=== PATIENT | female | born 1955 | race African-American/Black ===

== ENCOUNTER 2016-06-13 08:25 | Emergency (ER) | payer OTHER ==
[~2016-06-13] VITALS: Ht 177.8 cm; Wt 158.8 kg
[~2016-06-13 08:25] MED LIST: ATENOLOL25 MG PO; IBU800 MG PO; MACROBID100 MG PO; PYRIDIUM200 MG PO; SPIRONOLACTONE25 MG PO; VIBRAMYCIN100 MG PO
--- NOTE | 2016-06-13 08:38 | ED UPPER/LOWER EXTREMITY COMPL ---
History of Present Illness General Chief Complaint: Lower Extremity Problems Stated Complaint: RE-CHECK OF LEGS, SEEN 06/08 Source: patient, old records Exam Limitations: no limitations Vital Signs & Intake/Output Vital Signs & Intake/Output Vital Signs Date Time Temp Pulse Resp B/P Pulse O2 O2 Flow FiO2 Ox Delivery Rate 06/13 0845 168/98 06/13 0828 97.4 77 20 200/120 96 Room Air Allergies Coded Allergies: MDX - Ampicillin (AMPICILLIN) (Intermediate, HIVES 06/10/15) MDX - Penicillin (PENICILLIN) (Intermediate, HIVES 06/10/15) MDX - SULFA (sulfonamide) (SULFA (SULFONAMIDE)) (Intermediate, HIVES 06/10/15) Reconcile Medications Atenolol 25 MG TAB 1 TAB PO DAILY BP (Reported) Doxycycline Hyclate (Vibramycin) 100 MG CAPSULE 1 CAP PO BID INFN Ibuprofen (Ibu) 800 MG TAB 1 TAB PO PRN PAIN (Reported) NITROFURANTOIN MONOHYD/M-CRYST (Macrobid 100 MG Capsule) 100 MG CAP 1 CAP PO BID uti Phenazopyridine Hydrochlorid2 (Pyridium) 200 MG TAB 1 TAB PO TID dysuria Spironolactone 25 MG TAB 1 TAB PO DAILY BP (Reported) Triage Note: PT TO ED FOR RECHECK OF B/L LE CELLULITIS. PT WAS SEEN IN ED ON 06/08, SENT HOME WITH PO ABX, HAS BEEN TAKING DIRECTED. TOLD TO COME BACK FOR RE-EVAL OF LEGS TODAY. Triage Nurses Notes Reviewed? yes Onset: Gradual Duration: day(s): (6) Timing: remote history Severity: mild Severity Numbers: 1 Pain/Injury Location: Bilateral: Leg. Method of Injury: unknown Modifying Factors: Improves With: other (doxy,spironlolactone). Associated Symptoms: redness HPI: Patient is a 60-year-old female presenting to the emergency department with chief complaint of lower extremity edema and redness has been going on for 6 days. She was seen and evaluated here 5 days ago and started on antibiotics for suspected cellulitis. She was also told to increase her spironolactone dosing. She reports that the pain is now gone, the redness has decreased and she states feeling much better. Denies any nausea vomiting fevers or chills. No chest pain or shortness of breath. Denies numbness or tingling. (PRANAV MCCOLLUM) Past History Travel History Traveled to [place] past 21 day No Medical History Any Pertinent Medical History? see below for history Neurological: NONE EENT: NONE Cardiovascular: hypertension Respiratory: NONE Gastrointestinal: NONE Hepatic: NONE Renal: NONE Musculoskeletal: NONE Psychiatric: NONE Endocrine: NONE Blood Disorders: NONE Cancer(s): NONE Surgical History Surgical History: non-contributory Psychosocial History What is your primary language Qatari Tobacco Use: Current Daily Use Daily Tobacco Use Amount/Type: => 5 Cigarettes daily ETOH Use: denies use Illicit Drug Use: denies illicit drug use Family History Hx Contributory? No (PRANAV MCCOLLUM) Review of Systems Review of Systems Constitutional: Reports: no symptoms. Comments Review of systems: See HPI, All other systems negative. Constitutional, no chills fever or weight loss HEENT: No visual changes no sore throat no congestion Cardiovascular: No chest pain ,palpitation , orthopnea Skin, no jaundice Respiratory: No dyspnea cough sputum or hemoptysis GI: No nausea no vomiting : No dysuria No hematuria Muscle skeletal: no back pain, no neck pain, Neurologic: No numbness no confusion Psych: No stress anxiety or depression,. Heme/endocrine: No bruising no bleeding no polyuria or polydipsia Immunology: No splenectomy or history of AIDS (PRANAV MCCOLLUM) Physical Exam Physical Exam General Appearance: well developed/nourished, no apparent distress, alert, awake , comfortable Comments: Well-developed well-nourished person in no acute distress HEENT: Nose is atraumatic. Neck: Normal inspection Back: Nontender Cardiovascular: Regular rate and rhythms no murmurs rubs or gallops, normal JVP Respiratory: Chest nontender. No respiratory distress.breath sounds clear to auscultation bilaterally Extremity: One plus edema in the lower extremity is bilaterally, no calf tenderness to palpation, normal and equal pulses. Neuro: Alert oriented x3 Skin: No erythema noted on the lower extremities, No appreciable rash on exposed skin, skin is warm and dry. Psych: Mood and affect is normal, memory and judgment is normal. (PRANAV MCCOLLUM) Progress Differential Diagnosis: contusion, DVT, gout, cellulitis, depended edema Plan of Care: Patient is well-appearing, reports that she is doing much better after starting antibiotics and increasing spironolactone dosing. She does have 1+ edema in the lower seventh bilaterally without calf tenderness. Pulses are intact in lower extremity's. Clinical suspicion for DVT is extremely low, given outpatient ultrasound for left lower extremity as this is like both more swollen. She'll follow-up with her primary care physician and continue antibiotics. Patient was seen and evaluated by Dr. Busby and he agrees with plan. On arrival patient's blood pressure was extremely elevated, recheck with manual cuff reveals blood pressure of 160/90, patient per she just took her blood pressure medication. No headaches no visual changes no confusion. She will continue to monitor blood pressure home. (PRANAV MCCOLLUM) Departure Departure Time of Disposition: 836 Disposition: HOME OR SELF CARE Condition: Stable Clinical Impression Primary Impression: Leg edema Qualifiers: Laterality: bilateral Qualified Code: R60.0 - Localized edema Secondary Impressions: Hypertension Referrals: CAMILA BANKS,CIERRA Kenny (PCP/Family) Referred to [facility] as new patient No Additional Instructions: Follow-up with your primary care physician call to make an appointment for next week. Continue doxycycline. Return to regular dosing for years peroral lactone starting tomorrow. Elevate your legs as much as possible. Return for worsening symptoms or concerns. Departure Forms: Customer Survey General Discharge Information (PRANAV MCCOLLUM) PA/SENIOR DESIGNER Co-Sign Statement Statement: ED Attending supervision documentation- [x] I saw and evaluated the patient. I have also reviewed all the pertinent lab results and diagnostic results. I agree with the findings and the plan of care as documented in the PA's/SENIOR DESIGNER's documentation. [x] I have reviewed the ED Record and agree with the PA's/SENIOR DESIGNER's documentation. [] Additions or exceptions (if any) to the PAs/SENIOR DESIGNER's note and plan are summarized below: [] (ROCKY BUSBY DO)
[2016-06-13 08:45] VITALS: BP 168/98
== END 2016-06-13 08:49 ==
LOC: ERH 08:25
DX: R60.0 Localized edema (principal); I10 Essential (primary) hypertension

== ENCOUNTER 2018-01-06 18:07 | Emergency (ER) | payer OTHER ==
[~2018-01-06] VITALS: Ht 177.8 cm; Wt 158.8 kg
[~2018-01-06 18:07] MED LIST changes: +ALDACTONE25 MG PO; -SPIRONOLACTONE25 MG PO
[2018-01-06 18:16] VITALS: BP 164/84
--- NOTE | 2018-01-06 18:37 | ED SKIN/ALLERGY COMPLAINT ---
History of Present Illness General Chief Complaint: Animal/Insect Bite Stated Complaint: ?SPIDER BITE,"GOT BIT ON MONDAY" PER PT Source: patient Exam Limitations: no limitations Vital Signs & Intake/Output Vital Signs & Intake/Output Vital Signs Date Time Temp Pulse Resp B/P B/P Pulse O2 O2 Flow FiO2 Mean Ox Delivery Rate 01/06 1816 97.5 85 18 164/84 98 Room Air ED Intake and Output 01/07 0000 01/06 1200 Intake Total Output Total Balance Patient 350 lb Weight Allergies Coded Allergies: Penicillins (Intermediate, HIVES 01/06/18) Sulfa (Sulfonamide Antibiotics) (Intermediate, HIVES 01/06/18) ampicillin (Intermediate, HIVES 01/06/18) Reconcile Medications Atenolol 25 MG TAB 1 TAB PO DAILY BP (Reported) Cephalexin (Keflex) 500 MG CAPSULE 1 CAP PO TID CELLULITIS Doxycycline Hyclate (Vibramycin) 100 MG CAPSULE 1 CAP PO BID INFN Ibuprofen (Ibu) 800 MG TAB 1 TAB PO PRN PAIN (Reported) NITROFURANTOIN MONOHYD/M-CRYST (Macrobid 100 MG Capsule) 100 MG CAP 1 CAP PO BID uti Phenazopyridine Hydrochlorid2 (Pyridium) 200 MG TAB 1 TAB PO TID dysuria Spironolactone 25 MG TAB 1 TAB PO DAILY BP (Reported) Triage Note: 62F REPORTS SHE SUSTAINED A PAINFUL BITE OF SOME SORT ON MONDAY WHILE SITTING ON A BENCH AND STARTED GETTING RED IMMEDIATELY. PUT ALCOHOL ON IT, SLIGHTLY IMPROVED. AFEBRILE, DENIES SUBJECTIVE FEVERS OR CHILLS Triage Nurses Notes Reviewed? yes Onset: Gradual Duration: getting worse Timing: recent history Severity: moderate Severity Numbers: 5 HPI: Patient is a 62-year-old female with a past medical history of hypertension who presents emergency room with concerns of an unknown suspecting insect bite to her right lower extremity above the ankle in which since she is concerned of cellulitis in which she is complaining of a gradual onset of redness and pain to the region where she states that she's had similar events approximately 2 years ago Denies any fever chills. Skin is intact no known tick bite noted (Davion Presley) Past History Travel History Traveled to [place] past 21 day No Medical History Any Pertinent Medical History? see below for history Neurological: NONE EENT: NONE Cardiovascular: hypertension Respiratory: NONE Gastrointestinal: NONE Hepatic: NONE Renal: NONE Musculoskeletal: NONE Psychiatric: NONE Endocrine: NONE Blood Disorders: NONE Cancer(s): NONE Surgical History Surgical History: non-contributory Psychosocial History What is your primary language Frisian Tobacco Use: Current Daily Use Daily Tobacco Use Amount/Type: => 5 Cigarettes daily Family History Hx Contributory? No (Davion Presley) Review of Systems Review of Systems Constitutional: Reports: no symptoms. EENTM: Reports: no symptoms. Respiratory: Reports: no symptoms. Cardiovascular: Reports: no symptoms. GI: Reports: no symptoms. Genitourinary: Reports: no symptoms. Musculoskeletal: Reports: no symptoms. Skin: Reports: see HPI. Neurological/Psychological: Reports: no symptoms. Hematologic/Endocrine: Reports: no symptoms. Immunologic/Allergic: Reports: no symptoms. All Other Systems: Reviewed and Negative (Davion Presley) Physical Exam Physical Exam General Appearance: no apparent distress, alert, obese Head: atraumatic Ears, Nose, Throat: hearing grossly normal Neck: normal inspection Respiratory: no respiratory distress Peripheral Pulses: 2+ dorsalis pedis (R) Neurologic/Psych: no motor/sensory deficits Skin: intact Diagram Body: 1) Noted circumferential above the ankle erythema warmth and point tenderness skin intact no purulent discharge no fluctuance site (Davion Presley) Progress Differential Diagnosis: abscess/cellulitis, allergic reaction, contact dermatitis, erythema multiforme, lyme disease, meningitis/sepsis Plan of Care: Current Medications Sig/Aaron Start time Last Medication Dose Stop Time Status Admin Cephalexin 500 MG ONCE ONE 01/06 1845 UNVr 01/06 (Keflex 500MG Cap) 01/06 1846 1851 Patient neurovascular intact to right lower extremity No signs of abscess no signs of septic arthritis of the ankle Patient was strongly advised to return to emergency room as directed I marked the erythematous borders with surgical pen (Davion Presley) Comments: 01/08 932 called from pharmacy. The patient is allergic to cephalosporins. The patient switched to doxycycline 1 tab of 100 mg p.o. twice daily for 7 days. Patient is also allergic to sulfa but not allergic to doxycycline per the pharmacist. (Chun BANKS,[facility]) Departure Departure Disposition: HOME OR SELF CARE Condition: Stable Clinical Impression Primary Impression: Cellulitis of leg, right Referrals: Alessandra BANKS,Denny Kenny (PCP/Family) Additional Instructions: As discussed if symptoms worsen or if YOU develop any new concerning symptoms such as fevers or worsening redness of the leg return to emergency, return to emergency room in 2 days for recheck of symptoms. Begin the prescription of Keflex as directed PRESCRIPT[facility]. Departure Forms: Customer Survey General Discharge Information Prescriptions: Current Visit Scripts Cephalexin (Keflex) 1 CAP PO TID #30 CAP (Davion Presley)
[2018-01-06] MEDS ORDERED: KEFLEX500 M1 PO (18:45)
== END 2018-01-06 19:03 ==
LOC: ERH 18:07
DX: L03.115 Cellulitis of right lower limb (principal)

== ENCOUNTER 2018-01-08 07:07 | Emergency (ER) | payer OTHER ==
[~2018-01-08] VITALS: Ht 177.8 cm; Wt 158.8 kg
[~2018-01-08 07:07] MED LIST changes: +KEFLEX500 M1 PO
[2018-01-08 07:15] VITALS: BP 179/98
--- NOTE | 2018-01-08 07:35 | ED GENERAL ADULT ---
History of Present Illness General Chief Complaint: General Adult Stated Complaint: F/U FOR CELLULITIS TO R LEG SP D/C 01/06 Source: patient Exam Limitations: no limitations Vital Signs & Intake/Output Vital Signs & Intake/Output Vital Signs Date Time Temp Pulse Resp B/P B/P Pulse O2 O2 Flow FiO2 Mean Ox Delivery Rate 01/08 0715 96.9 79 20 179/98 96 Room Air 01/08/18 7:50 AM7:50 AM 62-year-old female presents to the emergency department for follow-up of right lower extremity cellulitis. She says she was bit by an insect on the right leg. She was started on doxycycline. She is here for wound recheck. She is afebrile. She says that the rash is getting better and there is less pain. Physical exam reveals swelling to the right lower extremity with minimal erythema. Allergies Coded Allergies: Penicillins (Intermediate, HIVES 01/06/18) Sulfa (Sulfonamide Antibiotics) (Intermediate, HIVES 01/06/18) ampicillin (Intermediate, HIVES 01/06/18) Reconcile Medications Cephalexin (Keflex) 500 MG CAPSULE 1 CAP PO TID CELLULITIS Metoprolol Succinate 50 MG TAB.ER.24H 1 TAB PO DAILY HEART (Reported) Spironolactone (Aldactone) 25 MG TABLET 1 TAB PO DAILY HEART (Reported) Triage Note: PT TO ED FOR F/U ON CELLULITIS TO RLE. PT STATES SHE WAS BIT BY SOMETHING. ORIGINALLY RX'D KEFLEX FOR LEG BUT SHE IS ALLERGIC TO SULFA, GIVEN DOXYCYCLINE INSTEAD. PT STATES SHE HAS TAKEN 3 DOSES AND FEELS HER LEG IS BETTER Triage Nurses Notes Reviewed? yes Onset: Gradual Duration: day(s): Timing: recent history HPI: 01/08/10 7 PM This is a darinel 62-year-old female who presents to the emergency department for reevaluation of right lower extremity cellulitis. She said she had an insect bite to the right anterior ankle. It subsequently became red and indurated. She denies any history of diabetes but does have a history of high blood pressure. No fever. She says that the rash is improving. She is currently on Vibramycin. The cellulitis is demarcated, and there is no erythema past the margins. She reports less pain. Past History Travel History Traveled to [place] past 21 day No Medical History Any Pertinent Medical History? see below for history Neurological: NONE EENT: NONE Cardiovascular: hypertension Respiratory: NONE Gastrointestinal: NONE Hepatic: NONE Renal: NONE Musculoskeletal: NONE Psychiatric: NONE Endocrine: NONE Blood Disorders: NONE Cancer(s): NONE Surgical History Surgical History: non-contributory Psychosocial History What is your primary language Korean Tobacco Use: Current Daily Use Daily Tobacco Use Amount/Type: => 5 Cigarettes daily ETOH Use: occasional use Illicit Drug Use: denies illicit drug use Family History Hx Contributory? No Review of Systems Review of Systems Constitutional: Denies: fever. EENTM: Reports: no symptoms. Respiratory: Reports: no symptoms. Cardiovascular: Reports: no symptoms. GI: Reports: no symptoms. Genitourinary: Reports: no symptoms. Musculoskeletal: Reports: see HPI. Skin: Reports: see HPI. Neurological/Psychological: Reports: no symptoms. Hematologic/Endocrine: Reports: no symptoms. Immunologic/Allergic: Reports: no symptoms. Physical Exam Physical Exam General Appearance: well developed/nourished, alert, awake, anxious, mild distress Head: atraumatic, normal appearance Eyes: Bilateral: normal appearance, PERRL, EOMI. Ears, Nose, Throat: normal ENT inspection Neck: normal inspection Respiratory: no respiratory distress Cardiovascular: regular rate/rhythm Peripheral Pulses: 4+ tibialis posterior (L), 4+ dorsalis pedis (R) Back: normal range of motion Extremities: pedal edema Neurologic/Psych: no motor/sensory deficits, awake, alert, oriented x 3, normal gait Skin: rash Comments: She has minimal erythema, bilateral stasis dermatitis, minimal pitting edema bilaterally. Core Measures ACS in differential dx? No CVA/TIA Diagnosis: No Sepsis Present: No Sepsis Focused Exam Completed? No Progress Differential Diagnoses I considered the following diagnoses in my evaluation of the patient: [ Cellulitis] Plan of Care: Continue the Vibramycin. Follow-up with her doctor this week. Return to the emergency department if worse. Have her blood pressure rechecked next week. Initial ED EKG: none Departure Departure Disposition: HOME OR SELF CARE Condition: Stable Clinical Impression Primary Impression: Cellulitis Secondary Impressions: Hypertension Referrals: Alessandra BANKS,Denny Kenny (PCP/Family) Departure Forms: Customer Survey General Discharge Information Critical Care Note Critical Care Note Critical Care Time: non-applicable
[2018-01-08] MEDS ORDERED: METOPROLOL SUCC50 M2 PO (07:44)
== END 2018-01-08 08:02 ==
LOC: ERH 07:07
DX: L03.115 Cellulitis of right lower limb (principal); I10 Essential (primary) hypertension; F17.210 Nicotine dependence, cigarettes, uncomplicated
CPT/HCPCS: 99282

== ENCOUNTER 2018-02-14 18:37 | Emergency (ER) | payer OTHER ==
[~2018-02-14] VITALS: Ht 177.8 cm; Wt 158.8 kg
[~2018-02-14 18:37] MED LIST changes: +METOPROLOL SUCC50 M2 PO
--- NOTE | 2018-02-14 19:57 | ULTRASOUND REPORT ---
EXAMINATION: US TRIPLEX LOWER EXTREMITY, RIGHT CLINICAL INFORMATION: Right lower extremity edema and swelling. COMPARISON: None TECHNIQUE: Color-flow triplex imaging with spectral analysis and compression Doppler were performed on the lower extremity. FINDINGS: Respiratory variation, normal compression and augmented flow are noted throughout the lower extremity. The visualized common femoral vein, superficial femoral vein, profunda femoral vein, popliteal vein and midcalf peroneal and posterior tibial venous segments show no evidence of deep venous thrombosis. There is no Masters's cyst. IMPRESSION: No evidence of deep venous thrombosis involving the lower extremity.
--- NOTE | 2018-02-14 20:25 | ED GENERAL ADULT ---
History of Present Illness General Chief Complaint: Lower Extremity Problems Stated Complaint: SIB URGENT CARE, CT SCAN R/O BLOOD CLOT Source: patient Exam Limitations: no limitations Vital Signs & Intake/Output Vital Signs & Intake/Output Vital Signs Date Time Temp Pulse Resp B/P B/P Pulse O2 O2 Flow FiO2 Mean Ox Delivery Rate 02/14 2234 174/90 02/14 2216 98.9 96 18 170/108 97 02/14 2135 196/110 02/14 2049 200/112 02/14 1846 98.2 94 24 215/138 97 Room Air Allergies Coded Allergies: Penicillins (Intermediate, HIVES 01/06/18) Sulfa (Sulfonamide Antibiotics) (Intermediate, HIVES 01/06/18) ampicillin (Intermediate, HIVES 01/06/18) Reconcile Medications Metoprolol Succinate 50 MG TAB.ER.24H 1 TAB PO DAILY HEART (Reported) Spironolactone (Aldactone) 25 MG TABLET 1 TAB PO DAILY HEART (Reported) Triage Note: 62F SIB WALK IN FOR RLE U/S TO R/O DVT DUE TO ONE WEEK OF PAIN, REDNESS, WARMTH AND DISCOMFORT. HYPERTENSIVE IN TRIAGE W KNOWN HX. SOME BLURRED VISION, DENIES HEADACHE. DENIES RECENT TRAVEL OR PERIODS OF IMMOBILITY Triage Nurses Notes Reviewed? yes HPI: 62-year-old female comes in with swelling and redness of the right leg. She has a history of colitis. She denies any injury fall. She denies any numbness or weakness. Past History Travel History Traveled to [place] past 21 day No Medical History Any Pertinent Medical History? see below for history Neurological: NONE EENT: NONE Cardiovascular: hypertension Respiratory: NONE Gastrointestinal: NONE Hepatic: NONE Renal: NONE Musculoskeletal: NONE Psychiatric: NONE Endocrine: NONE Blood Disorders: NONE Cancer(s): NONE Surgical History Surgical History: non-contributory Psychosocial History What is your primary language British Tobacco Use: Current Daily Use Daily Tobacco Use Amount/Type: => 5 Cigarettes daily Family History Hx Contributory? Yes Review of Systems Review of Systems Constitutional: Denies: chills, diaphoresis, fever. EENTM: Denies: blurred vision, double vision, visual changes. Respiratory: Denies: cough, hemoptysis, orthopnea. Cardiovascular: Reports: edema. Denies: chest pain, orthopena. GI: Denies: abdominal pain, bloating, constipation, diarrhea. Musculoskeletal: Denies: back pain, gout, joint pain. Skin: Reports: change in skin color. Denies: cysts, change in hair/nails. Neurological/Psychological: Denies: anxiety, ataxia, cognitive dysfunction. Physical Exam Physical Exam General Appearance: well developed/nourished, no apparent distress, alert Head: atraumatic, normal appearance Eyes: Bilateral: PERRL, EOMI. Ears, Nose, Throat: normal pharynx, normal ENT inspection Neck: normal inspection Respiratory: normal breath sounds, chest non-tender Gastrointestinal: normal bowel sounds, soft Extremities: see below Skin: intact, see below Comments: Bilateral lower extremity exam shows normal pulses. The patient has swelling erythema to right lower leg. She has had cellulitis of the side before. Presentation consistent with cellulitis. Core Measures ACS in differential dx? No CVA/TIA Diagnosis: No Sepsis Present: No Sepsis Focused Exam Completed? No Progress Differential Diagnoses . Plan of Care: Orders Procedure Date/time Status CBC WITHOUT DIFFERENTIAL 02/15 2016 Complete BASIC METABOLIC PANEL 02/15 2016 Complete Laboratory Tests 02/14/182037: Anion Gap 6, Estimated GFR > 60, BUN/Creatinine Ratio 16.7, Glucose 108 H, Calcium 9.0, CBC w Diff NO MAN DIFF REQ, RBC 4.69, MCV 88.1, MCH 29.3, MCHC 33.3 , RDW 14.6 H, MPV 9.1, Gran % 54.6, Lymphocytes % 31.9, Monocytes % 8.7, Eosinophils % 3.9, Basophils % 0.9, Absolute Granulocytes 3.4, Absolute Lymphocytes 2.0, Absolute Monocytes 0.5, Absolute Eosinophils 0.2, Absolute Basophils 0.1 Initial ED EKG: none Comments: Cellulitis: Ultrasound was done which shows no DVT, the patient will need treatment. Previous records show she responded well to doxycycline. Given her extensive allergic profile we will restart her on doxycycline. The patient is hypertensive, we will give her extra dose of metoprolol since her heart rate is normal. She took 50 mg of extended release metoprolol this morning. The patient has not had renal function checked in many years, we will check the functions now. We will also check her for white count. She is not septic. 2238 the patient's blood pressure is improving. We will restart her doxycycline because she seems to have responded every time to the treatment. Plan will be to do a recheck. I will add amlodipine to the patient's blood pressure regimen. Blood pressure check twice a day with emergency room return warnings. The patient is comfortable and verbalizes understanding. Has no signs or symptoms of hypertensive urgency or emergency. The patient is allergic to sulfa also given her age and medications this would not be good choice, she is allergic to penicillins, Keflex. Doxycycline does not work next choice would be clindamycin. Departure Departure Time of Disposition: 2239 Disposition: HOME OR SELF CARE Condition: Stable Clinical Impression Primary Impression: Cellulitis Secondary Impressions: Hypertension Referrals: Alessandra BANKS,Denny Kenny (PCP/Family) Additional Instructions: Watch her blood pressure twice a day Take the list her doctor. If you get worse to return to the emergency room. Return in 2 days for recheck of your leg Departure Forms: Customer Survey General Discharge Information Critical Care Note Critical Care Note Critical Care Time: non-applicable
[2018-02-14 20:49] LABS: ABSOLUTE BASOPHIL COUNT 0.1 /CUMM (0.0-0.2); ABSOLUTE EOSINOPHIL COUNT 0.2 /CUMM (0.0-0.7); ABSOLUTE GRANULOCYTE CT 3.4 /CUMM (1.4-6.5); ABSOLUTE MONOCYTE COUNT 0.5 /CUMM (0.10-0.60); BASOPHIL % 0.9 % (0.0-2.0); EOSINOPHIL % 3.9 % (0-5); GRANULOCYTE % 54.6 % (42.2-75.2); HEMATOCRIT 41.3 % (37-47); MEAN CORPUSCULAR HGB 29.3 PG (27.0-31.0); MEAN CORPUSCULAR HGB CONC 33.3 G/DL (33.0-37.0); MEAN CORPUSCULAR VOLUME 88.1 FL (81.0-99.0); MEAN PLATELET VOLUME 9.1 FL (7.4-10.4); PLATELET COUNT 209 /CUMM (130-400); RBC DISTRIBUTION WIDTH 14.6 % (11.5-14.5); RED BLOOD CELL CT 4.69 /CUMM (4.20-5.40); WHITE BLOOD CELL COUNT 6.2 /CUMM (4.8-10.8)
[2018-02-14 22:34] VITALS: BP 174/90
[2018-02-14] MEDS ORDERED: DOXYCYCLINE HY100 M2 PO (22:41)
[2018-02-14] MEDS ORDERED: AMLODIPINE BESYL5 M1 PO (22:41)
== END 2018-02-14 22:42 ==
LOC: ERH 18:37
PROVIDERS: Emergency Medicine
DX: L03.115 Cellulitis of right lower limb (principal)